=== PATIENT | male | born 1980 | race American Indian/Alaskan Native ===

== ENCOUNTER 2018-05-09 18:35 | Emergency (ER) | payer SELFPAY ==
[2018-05-09] MEDS ORDERED: SUBLIMAZE ONE (18:59)
[2018-05-09] MEDS ORDERED: ZOFRAN ONE (18:59)
[2018-05-09] MEDS ORDERED: SUBLIMAZE IV ONE (19:01)
[2018-05-09] MEDS ORDERED: ZOFRAN IV ONE (19:01)
[2018-05-09] MEDS ORDERED: DILAUDID IV ONE ×2 (19:57→22:03)
--- NOTE | 2018-05-09 20:07 | Emergency Department Report ---
HPI - General Chief Complaint: Extremity Injury, Upper Time Seen by Provider: 05/09/18 19:53 - HPI HPI: Room 22 The patient is a 37-year-old male presenting with a chief complaint of pain after fall. 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 Patient complains of pain in the right elbow however upon further examination just pain in his neck, left wrist and left knee as well. Patient gives his pain score 10/10. The fall occurred at approximately 17:00 today Location: [See above] Duration: [See above] Quality: Pain Severity: 10/10 Modifying factors: [see above] Context: [see above] Mode of transportation: [not driving] ED Past Medical Hx - Past Medical History Previous Medical History?: No - Surgical History Past Surgical History?: No - Family History Family history: no significant - Social History Smoking Status: Never Smoker Substance Use Type: None (denies illicit drug use) ED Review of Systems ROS: Stated complaint: BROKE ARM/PAIN Other details as noted in HPI Constitutional: no symptoms reported Eyes: denies: eye pain ENT: denies: throat pain Cardiovascular: denies: chest pain Gastrointestinal: denies: abdominal pain Genitourinary: denies: dysuria Musculoskeletal: arthralgia, myalgia. denies: back pain Physical Exam - Physical Exam Vital Signs: Vital Signs 05/09/18 05/09/18 05/09/18 18:55 18:56 19:00 Temperature 97.5 F L Pulse Rate 99 H 96 H Respiratory 16 18 16 Rate Blood Pressure 144/107 Blood Pressure 134/92 [Left] O2 Sat by Pulse 95 96 Oximetry 05/09/18 19:31 Temperature Pulse Rate Respiratory Rate Blood Pressure Blood Pressure [Left] O2 Sat by Pulse 97 Oximetry Physical Exam: GENERAL: The patient is well-developed well-nourished male lying on stretcher to bed in moderate discomfort. [] HEENT: Normocephalic. Atraumatic. Extraocular motions are intact. Patient has moist mucous membranes. NECK: Supple. No axial step off but patient is tender to palpation CHEST/LUNGS: Clear to auscultation. There is no respiratory distress noted. HEART/CARDIOVASCULAR: Regular. There is no tachycardia. There is no gallop rub or murmur. 2+ radial pulse bilaterally ABDOMEN: Abdomen is soft, nontender. Patient has normal bowel sounds. There is no abdominal distention. SKIN: There is no rash. There is no edema. There is no diaphoresis. NEURO: The patient is awake, alert, and oriented. The patient is cooperative. The patient has normal speech MUSCULOSKELETAL: There is tenderness to palpation of the right elbow medially and laterally. There is tenderness to palpation of the left knee and femur. There is tenderness to palpation of the anterior aspect of the left wrist. There is no left anatomical snuffbox tenderness ED Course Vital Signs 05/09/18 05/09/18 05/09/18 18:55 18:56 19:00 Temperature 97.5 F L Pulse Rate 99 H 96 H Respiratory 16 18 16 Rate Blood Pressure 144/107 Blood Pressure 134/92 [Left] O2 Sat by Pulse 95 96 Oximetry 05/09/18 19:31 Temperature Pulse Rate Respiratory Rate Blood Pressure Blood Pressure [Left] O2 Sat by Pulse 97 Oximetry - Consultations Consultation #1: 05/09/18 22:07 [facility] transfer line called 05/09/18 22:11 Case discussed with transfer line-they will contact trauma service and call back - Orthopedic Joint Reduction Joint #1 Consent Obtained: verbal consent Time Out Performed: Yes Side: right Joint Reduction Location: elbow Analgesia: moderate sedation Technique Used: traction/counter-traction Post-Reduction Neuro Exam: intact Post-Reduction Vascular Exam: intact Post Reduction X-Ray Obtained: Yes Post Reduction X-Ray Results: reduced Splint Applied: Yes Patient Tolerated Procedure: well ED Medical Decision Making - Radiology Data Radiology results: report reviewed (CT head, CT cervical spine, right elbow x- ray, left femur x-ray, left wrist x-ray, right wrist x-ray, chest x-ray), image reviewed (CT head, CT cervical spine, right elbow x-ray, left femur x-ray, left wrist x-ray, right wrist x-ray, chest x-ray) interpreted by me: Chest x-ray-no focal infiltrate, no pneumothorax Elbow x-ray #1-elbow dislocation, fracture of the radial head Post reduction right elbow x-ray-no elbow dislocation. Comminuted fracture of the radial head Left wrist x-ray-no acute fracture Left femur x-ray-no acute fracture [facility] [address] [place] [address] Cat Scan Report Signed Patient: REJI DELACRUZ MR#: [id number] : 1980 Acct:[id number] Age/Sex: 37 / M ADM Date: 05/09/18 Loc: ED Attending Dr: Ordering Physician: SUZANNE GONZALEZ MD Date of Service: 05/09/18 Procedure(s): CT cervical spine wo con Accession Number(s): [id number] cc: SUZANNE GONZALEZ MD FINAL REPORT PROCEDURE: CT CERVICAL SPINE WO CON TECHNIQUE: Computerized tomography of the cervical spine was performed from the skull base to T1 without contrast material. HISTORY: pain after 12 foot fall COMPARISON: No prior studies are available for comparison. FINDINGS: Vertebral alignment and height are within normal limits. An acute fracture is not identified. Visualized lung apices are clear. Thyroid is unremarkable. C1-2: No significant abnormality. C2-3: No significant abnormality. C3-4: No significant abnormality. C4-5: No significant abnormality. C5-6: No significant abnormality. C6-7: Mild degree central disc protrusion is noted without significant spinal canal or neural foraminal compromise.. C7-T1: No significant abnormality. Other: No additional findings. IMPRESSION: No acute fracture Mild degree central disc protrusion at C6-7 without significant spinal canal or neural foraminal compromise.. Transcribed By: [facility] Dictated By: GABRIEL LEY Electronically Authenticated By: GABRIEL LEY Signed Date/Time: 05/09/182152 DD/ 52 TD/TT: 05/09/182152 [facility] [address] [place] [address] Cat Scan Report Signed Patient: REJI DELACRUZ MR#: [id number] : 1980 Acct:[id number] Age/Sex: 37 / M ADM Date: 05/09/18 Loc: ED Attending Dr: Ordering Physician: SUZANNE GONZALEZ MD Date of Service: 05/09/18 Procedure(s): CT head/brain wo con Accession Number(s): [id number] cc: SUZANNE GONZALEZ MD FINAL REPORT PROCEDURE: CT HEAD/BRAIN WO CON TECHNIQUE: Computerized tomography of the head was performed without contrast material. HISTORY: pain after 12 foot fall COMPARISON: No prior studies are available for comparison. FINDINGS: Skull and scalp: Normal. Paranasal sinuses: Normal. Ventricles and subarachnoid spaces: Normal. Cerebrum: Small irregular areas of hyperdensity are noted involving bilateral occipital lobes at the sarabia white junction. A small focus of calcification measuring about 2.5 millimeters most likely representing a focus of dystrophic calcification.. Cerebellum and brainstem: No evidence of hemorrhage, acute infarction or mass. Vasculature: Normal. Comments: None. IMPRESSION: Small areas of hyperdensity involving bilateral occipital lobes are consistent with hemorrhages secondary to contusions versus shearing injury. MRI is recommended for further evaluation. Transcribed By: [facility] [place] Dictated By: GABRIEL LEY Electronically Authenticated By: GABRIEL LEY Signed Date/Time: 05/09/182121 DD/ 21 TD/TT: 05/09/182121 - Differential Diagnosis supracondylar fracture, femur fracture, cervical strain, cervical fracture, Critical care attestation.: If time is entered above; I have spent that time in minutes in the direct care of this critically ill patient, excluding procedure time. ED Disposition Clinical Impression: Cerebral contusion, Dislocation of right elbow, Right radial head fracture Disposition: DC/TX-70 ANOTHER TYPE HLTHCARE Is pt being admited?: No Does the pt Need Aspirin: No Condition: Serious Referrals: PRIMARY CARE, [Primary Care Provider] - 3-5 Days Time of Disposition: 22:07 (awaiting transport)
[2018-05-09] MEDS ORDERED: AMIDATE IV ONE ×2 (21:00→21:30)
--- NOTE | 2018-05-09 21:26 | Cat Scan Report ---
FINAL REPORT PROCEDURE: CT HEAD/BRAIN WO CON TECHNIQUE: Computerized tomography of the head was performed without contrast material. HISTORY: pain after 12 foot fall COMPARISON: No prior studies are available for comparison. FINDINGS: Skull and scalp: Normal. Paranasal sinuses: Normal. Ventricles and subarachnoid spaces: Normal. Cerebrum: Small irregular areas of hyperdensity are noted involving bilateral occipital lobes at the sarabia white junction. A small focus of calcification measuring about 2.5 millimeters most likely representing a focus of dystrophic calcification.. Cerebellum and brainstem: No evidence of hemorrhage, acute infarction or mass. Vasculature: Normal. Comments: None. IMPRESSION: Small areas of hyperdensity involving bilateral occipital lobes are consistent with hemorrhages secondary to contusions versus shearing injury. MRI is recommended for further evaluation.
--- NOTE | 2018-05-09 21:58 | Cat Scan Report ---
FINAL REPORT PROCEDURE: CT CERVICAL SPINE WO CON TECHNIQUE: Computerized tomography of the cervical spine was performed from the skull base to T1 without contrast material. HISTORY: pain after 12 foot fall COMPARISON: No prior studies are available for comparison. FINDINGS: Vertebral alignment and height are within normal limits. An acute fracture is not identified. Visualized lung apices are clear. Thyroid is unremarkable. C1-2: No significant abnormality. C2-3: No significant abnormality. C3-4: No significant abnormality. C4-5: No significant abnormality. C5-6: No significant abnormality. C6-7: Mild degree central disc protrusion is noted without significant spinal canal or neural foraminal compromise.. C7-T1: No significant abnormality. Other: No additional findings. IMPRESSION: No acute fracture Mild degree central disc protrusion at C6-7 without significant spinal canal or neural foraminal compromise..
[2018-05-09] MEDS ORDERED: DILAUDID ONE (22:03)
[2018-05-09 22:29] LABS: Basophils # (Auto) 0.1 K/mm3 (0.0-0.1); Basophils % (Auto) 0.6 % (0.0-1.8); Eosinophils # (Auto) 0.1 K/mm3 (0.0-0.4); Eosinophils % (Auto) 0.8 % (0.0-4.3); Hemoglobin 13.3 gm/dl (11.8-15.2); Lymphocytes # (Auto) 1.4 K/mm3 (1.2-5.4); Lymphocytes % (Auto) 9.9 % (13.4-35.0); Mean Corpuscular HGB Conc 36 % (32-34); Mean Corpuscular Hemoglobin 34 pg (28-32); Mean Corpuscular Volume 93 fl (84-94); Monocytes # (Auto) 0.6 K/mm3 (0.0-0.8); Platelet Count 352 K/mm3 (140-440); Red Blood Count 3.97 M/mm3 (3.65-5.03); Red Cell Distribution Width 13.9 % (13.2-15.2)
[2018-05-09 22:39] LABS: INR 0.86 (0.87-1.13)
[2018-05-09 22:40] LABS: Partial Thromboplastin Time 29.9 Sec. (24.2-36.6)
[2018-05-09 22:41] LABS: BUN/Creatinine Ratio 32; Blood Urea Nitrogen 19 mg/dL (9-20); Calcium 8.6 mg/dL (8.4-10.2); Hemolysis Index 21
[2018-05-09 22:46] VITALS: BP 139/96
--- NOTE | 2018-05-09 23:20 | XRay Report ---
FINAL REPORT PROCEDURE: XR CHEST 1V AP TECHNIQUE: Chest radiograph anteroposterior view. CPT 89824 HISTORY: left scapular pain after fall COMPARISON: No prior studies are available for comparison. FINDINGS: Heart: Normal. Mediastinum/Vessels: Normal. Lungs/Pleural space: Normal. Bony thorax: No acute osseous abnormality. Life support devices: None. IMPRESSION: No acute cardiopulmonary abnormality.
--- NOTE | 2018-05-09 23:21 | XRay Report ---
FINAL REPORT PROCEDURE: XR WRIST 3+V LT TECHNIQUE: LEFT wrist radiographs, including AP, lateral, and oblique views. CPT 19803 HISTORY: pain after fall COMPARISON: No prior studies are available for comparison. FINDINGS: Fracture (s) and/or Dislocation(s): None . Alignment: Normal . Joint space(s): Normal . Soft tissues: Normal . Bone mineralization: Normal . Foreign bodies: None . IMPRESSION: Normal Examination.
--- NOTE | 2018-05-09 23:21 | XRay Report ---
FINAL REPORT PROCEDURE: XR FEMUR 2+V LT TECHNIQUE: LEFT femur radiographs, AP and lateral views. HISTORY: pain after fall COMPARISON: No prior studies are available for comparison. FINDINGS: Fracture (s) and/or Dislocation(s): None . Joint space(s): Normal . Soft tissues: Normal . Bone mineralization: Normal . Foreign bodies: None . IMPRESSION: Normal Examination
--- NOTE | 2018-05-09 23:23 | XRay Report ---
FINAL REPORT PROCEDURE: XR ELBOW 2V RT TECHNIQUE: RIGHT elbow radiographs, including AP, lateral, and oblique views. CPT 93163 HISTORY: pain after 12 foot fall COMPARISON: No prior studies are available for comparison. FINDINGS: There is posterior dislocation radius and ulna associated with comminuted fracture of the radial head there also appears to be a possible fracture fragment at the tip of the olecranon. IMPRESSION: Fracture dislocation of elbow
--- NOTE | 2018-05-09 23:34 | XRay Report ---
FINAL REPORT PROCEDURE: XR ELBOW 2V LT TECHNIQUE: RIGHT elbow radiograph, including lateral view. HISTORY: post reduction attempt COMPARISON: 05/09/2018 1958 hours FINDINGS: There is been interval closed reduction of dislocated elbow joint. The alignment is satisfactory as visualized on this single lateral view. Comminuted fracture fragments of the radial head with [id number] degree displacement are noted. IMPRESSION: Satisfactory alignment post reduction.
== END 2018-05-09 23:52 | disposition other institution (70) ==
LOC: ED 18:35
DX: S52.121A Displaced fracture of head of right radius, initial encounter for closed fracture (principal); S52.201A Unspecified fracture of shaft of right ulna, initial encounter for closed fracture; S06.330A Contusion and laceration of cerebrum, unspecified, without loss of consciousness, initial encounter; W18.30XA Fall on same level, unspecified, initial encounter; Y93.89 Activity, other specified; Y92.89 Other specified places as the place of occurrence of the external cause; Y99.8 Other external cause status
CPT/HCPCS: 25605; 36415; 70450; 71045; 72125; 73070; 73110; 73552; 80048; 85025; 85610; 85730; 96374; 96375; 96376; 99285; J1170; J2405; J3010